=== PATIENT | male | born 1930 | race Caucasian/White ===

== ENCOUNTER 2016-06-17 18:16 | Emergency (ER) | payer MEDICARE, BC ==
--- NOTE | 2016-06-20 12:11 | ER ---
ADMIT: 06/17/2016 RM/LOC: ER [facility] MR#: [id number] [address] SUSIE SRINIVASAN Scott [address] [place] [address] Emergency Room Report SEX: M AGE: 85 : 1930 DATE: 06/17/2016 An 85-year-old gentleman, comes to the Emergency Department with complaints of left lower leg pain in the calf and just recently started Levaquin for sinusitis. See T-sheet for remainder of history and physical. I have ordered a Doppler ultrasound of the lower extremity. I anticipate this individual will be able to go home; however, signing his care will be my colleague, Dr. Ball for followup of the ultrasound study and final disposition. Moshe Miller MD/ rochelle JOB #: [id number] CC: Moshe Miller MD, Attending Physician UNKNOWN, Family Physician
== END 2016-06-17 20:57 | disposition home or self-care (01) ==
LOC: ER 18:16
DX: M79.605 Pain in left leg (principal); I10 Essential (primary) hypertension; Z95.1 Presence of aortocoronary bypass graft; Z88.2 Allergy status to sulfonamides; Z88.5 Allergy status to narcotic agent; Z79.899 Other long term (current) drug therapy

== ENCOUNTER 2016-06-22 16:56 | Emergency (ER) | payer MEDICARE, BC ==
--- NOTE | 2016-06-26 12:33 | ER ---
ADMIT: 06/22/2016 RM/LOC: ER [facility] MR#: [id number] [address] SUSIE SRINIVASAN Scott [address] [place] [address] Emergency Room Report SEX: M AGE: 85 : 1930 DATE: 06/22/2016 ADDENDUM: An 85-year-old white male coming in with flank pain that he had early this morning. He says it was acute, abrupt, and went away. He is better now. I did go ahead and do a CT scan just to see if he has had stones or other problems there. He does have diverticulosis. Refer to the full radiology report. There was a mention of a little calcification along the ureter on exam. He had essentially described a partial calcification of 2 cm x 4 cm transfers by the 3.9 cranial-caudad masslike density in the left hemipelvis most likely caused by degree of stretching of the distal left ureter with mild left-sided hydro noted without significant left-sided hydronephrosis identified at this time. Etiology of the calcification of the mass is uncertain; however, this is a new finding prior to CT scanning. This could potentially represent a calcified hematoma of the left hemipelvis, but nothing else there. He does have a diverticulosis of the colon without diverticulitis. At this time, we are going to discharge him out. He had no pain. He was on some medication to clear up a urinary tract infection he had, which is Keflex, which he should finish off and then see Dr. Fiore this week. CONDITION ON DISCHARGE: Good. Giuliano Granados MD/ rochelle JOB #: [id number] CC: Giuliano Granados MD, Attending Physician Alex Fiore MD, Family Physician
== END 2016-06-22 18:55 | disposition home or self-care (01) ==
LOC: ER 16:56
DX: K57.90 Diverticulosis of intestine, part unspecified, without perforation or abscess without bleeding (principal); I10 Essential (primary) hypertension; Z88.2 Allergy status to sulfonamides; Z88.5 Allergy status to narcotic agent; Z79.899 Other long term (current) drug therapy